=== PATIENT | male | born 1940 | race Caucasian/White ===

== ENCOUNTER 2022-06-11 11:43 | Day surgery (SDC) | payer MEDICARE ==
[2022-06-10 12:38] VITALS: BMI 25.8
[~2022-06-11 11:43] MED LIST: SODIUM CHLORIDE 0.9% 1,000 ML IV SCH
[2022-06-11 12:19] VITALS: TEMP 98
[2022-06-11 14:35] VITALS: BP 152/66; PULSE 60; RESP 16
--- NOTE | 2022-06-12 15:56 | P.EPPROC ---
- EP Procedure Note Electrophysiology Procedure Note: Diagnosis Recurrent syncope Twelve-lead EKG Atrial paced rhythm on the lead EKG, mild IVCD QR pattern in the inferior leads and V3-V6 T-wave inversion in the high lateral leads LVH Tilt table test Baseline heart rate 70 beats a minute Baseline blood pressure 180/77 mmHg patient was tilted upright at an angle of 70 per protocol There was an immediate drop of 18 mmHg systolic without any change in heart rate Thereafter there was a gradually progressive decline in his blood pressure Lowest blood pressure was 73/49 mmHg. 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
== END 2022-06-11 14:55 | disposition home or self-care (01) ==
LOC: CATHEP 11:43
PROVIDERS: ATTEND Internal Medicine Clinical Cardiac Electrophysiology
DX: R55 Syncope and collapse (principal); Z20.822 Contact with and (suspected) exposure to COVID-19
CPT/HCPCS: 87635; 93660